=== PATIENT | female | born 1995 ===

== ENCOUNTER 2016-10-08 19:23 | Emergency (ER) | payer SELFPAY ==
[2016-10-08 20:10] VITALS: BP 140/87; PULSE 98; RESP 18; TEMP 98.5; O2SAT 100
--- NOTE | 2016-10-08 21:29 | ED PDOC ---
HPI: Female Pain Time Seen by Provider: 10/08/16 21:05 Chief Complaint (Nursing): Female Genitourinary History Per: Patient Additional Complaint(s): Pt. c/o dysuria, frequency, urgency x 1 days. Pt. states 2 months ago she had similar symptoms and was dx with a UTI and prescribed oral meds with good relif of symptoms. Denies fever, flank pain, abdominal pain, incontinence. Past Medical History Reviewed: Historical Data, Nursing Documentation, Vital Signs Vital Signs: Last Vital Signs Temp 98.5 F 10/08/16 20:07 Pulse 98 H 10/08/16 20:07 Resp 18 10/08/16 20:07 BP 140/87 10/08/16 20:07 Pulse Ox 100 10/08/16 20:07 - Family History Family History: States: No Known Family Hx - Home Medications Home Medications: Ambulatory Orders Medication Instructions Recorded Ciprofloxacin [Cipro] 500 mg PO BID #14 tab 07/13/16 Naproxen [Naprosyn] 500 mg PO BID PRN #14 tablet 07/13/16 Nitrofurantoin Macrocrystals 100 mg PO BID #14 cap 10/08/16 [Macrobid] Phenazopyridine [Phenazopyridine 100 mg PO BID #6 tab 10/08/16 HCl] - Allergies Allergies/Adverse Reactions: Allergies Allergy/AdvReac Type Severity Reaction Status Date / Time No Known Allergies Allergy Verified 07/13/16 03:21 Review of Systems ROS Statement: Except As Marked, All Systems Reviewed And Found Negative Genitourinary Female: Positive for: Dysuria, Frequency Physical Exam - Physical Exam Appears: Positive for: Well, Non-toxic, No Acute Distress Skin: Positive for: Normal Color, Warm. Negative for: Rash Eye Exam: Positive for: Normal appearance Gastrointestinal/Abdominal: Positive for: Normal Exam, Soft. Negative for: Tenderness Back: Positive for: Normal Inspection. Negative for: L CVA Tenderness, R CVA Tenderness Neurologic/Psych: Positive for: Alert, Oriented - Laboratory Results Urine POC: Negative Urine dip results: Positive for: Leukocyte Esterase (small), Blood (trace), Protein (30). Negative for: Nitrate, Ketones, Glucose, Bilirubin - ECG O2 Sat by Pulse Oximetry: 100 Disposition - Clinical Impression Clinical Impression: Urinary tract infection - Patient ED Disposition Is Patient to be Admitted: No - Disposition Disposition: Routine/Home Disposition Time: 21:59 Condition: STABLE Additional Instructions: Drink plenty of water. Follow up with your PMD in 2 days for further evaluation. Prescriptions: Nitrofurantoin Macrocrystals [Macrobid] 100 mg PO BID #14 cap Phenazopyridine [Phenazopyridine HCl] 100 mg PO BID #6 tab Instructions: Urinary Tract Infection in Women (ED)
== END 2016-10-08 22:00 | disposition home or self-care (01) ==
LOC: H.ER 19:23
DX: N39.0 Urinary tract infection, site not specified (principal)

== ENCOUNTER 2016-10-10 21:59 | Emergency (ER) | payer SELFPAY ==
--- NOTE | 2016-10-10 22:49 | ED PDOC ---
HPI: Abdomen Chief Complaint (Provider): Abdominal Pain History Per: Patient History/Exam Limitations: no limitations Onset/Duration Of Symptoms: Days (1) Outside of [place] travel?: No Current Symptoms Are (Timing): Still Present Pain Scale Rating Of: 7 Location Of Pain/Discomfort: RUQ, Suprapubic Quality Of Discomfort: Sharp, Burning Associated Symptoms: Urinary Symptoms (dysuria). denies: Fever, Chills, Nausea , Vomiting, Diarrhea, Back Pain Alleviating Factors: None Last Bowel Movement: Today Last Menstral Period: Today : 0 Para: 0 <Jerome Calle - Last Filed: 10/11/16 02:04> Location Of Pain/Discomfort: Suprapubic <Ashley Hughes - Last Filed: 10/11/16 14:54> Time Seen by Provider: 10/10/16 22:11 Chief Complaint (Nursing): Abdominal Pain Additional Complaint(s): 21 yo F w previous ED visit for UTI and no other PMHx presents to ED w c/o abdominal pain worsening over last couple of days. Pt was previously seen in the ED w confirmed UTI and given antibiotics. She states her lower abdominal / suprapubic pain and dysuria to be worse than previous visit. She has frequent urge to urinate, but finds that she does not often have an actual need. She denies fevers/chills, n/v/d/c, headaches, chest pain, sob, or dyspnea. (Jerome Calle) Past Medical History - Family History Family History: States: Unknown Family Hx <Jerome Calle - Last Filed: 10/11/16 02:04> <Ashley Hughes - Last Filed: 10/11/16 14:54> Vital Signs: Last Vital Signs Temp 98.3 F 10/11/16 02:14 Pulse 72 10/11/16 02:14 Resp 18 10/11/16 02:14 BP 117/61 10/11/16 02:14 Pulse Ox 98 10/11/16 02:14 - Home Medications Home Medications: Ambulatory Orders Medication Instructions Recorded Ciprofloxacin [Cipro] 500 mg PO BID #14 tab 07/13/16 Naproxen [Naprosyn] 500 mg PO BID PRN #14 tablet 07/13/16 Nitrofurantoin Macrocrystals 100 mg PO BID #14 cap 10/08/16 [Macrobid] Phenazopyridine [Phenazopyridine 100 mg PO BID #6 tab 10/08/16 HCl] - Allergies Allergies/Adverse Reactions: Allergies Allergy/AdvReac Type Severity Reaction Status Date / Time No Known Allergies Allergy Verified 10/10/16 22:05 Review of Systems ROS Statement: Except As Marked, All Systems Reviewed And Found Negative <Jerome Calle - Last Filed: 10/11/16 02:04> Physical Exam - Reviewed Nursing Documentation Reviewed: Yes Vital Signs Reviewed: Yes - Physical Exam Appears: Positive for: Non-toxic, No Acute Distress Head Exam: Positive for: ATRAUMATIC, NORMAL INSPECTION, NORMOCEPHALIC Skin: Positive for: Normal Color, Warm, Dry Eye Exam: Positive for: Normal appearance, EOMI, PERRL ENT: Positive for: Normal ENT Inspection Neck: Positive for: Normal, Painless ROM, Supple Cardiovascular/Chest: Positive for: Regular Rate, Rhythm. Negative for: Edema Respiratory: Positive for: Normal Breath Sounds. Negative for: Crackles Pulses-Post. Tibialis (L): 2+ Pulses-Post. Tibialis (R): 2+ Gastrointestinal/Abdominal: Positive for: Normal Exam, Bowel Sounds, Soft. Negative for: Tenderness, Distended, Guarding, Rebound Back: Positive for: Normal Inspection, L CVA Tenderness, R CVA Tenderness Extremity: Positive for: Normal ROM. Negative for: Pedal Edema, Calf Tenderness Neurologic/Psych: Positive for: Alert, payroll lead II-XII, Oriented <Jerome Calle T - Last Filed: 10/11/16 02:04> - Laboratory Results Result Diagrams: 10/10/16 22:51 10/10/16 22:51 - ECG O2 Sat by Pulse Oximetry: 100 - Progress Re-evaluation Time: 01:00 (U/S similar to Walker exam, labs wnl) Condition: Re-examined, Improved <Jerome Calle - Last Filed: 10/11/16 02:04> - Laboratory Results Result Diagrams: 10/10/16 22:51 10/10/16 22:51 - ECG O2 Sat by Pulse Oximetry: 100 Pulse Ox Interpretation: Normal - CT Scan/US Transvaginal US Other Rad Studies (CT/US): Interpreted By Me, Read By Radiologist, Radiology Report Reviewed <Ashley Hughes - Last Filed: 10/11/16 14:54> - Progress ED Course And Treament: 21 yo F w previous ED visit for UTI and no other PMHx presents to ED w c/o abdominal pain worsening over last couple of days -CBC -CMP -Upreg -UA -Transvaginal U/S -Toradol 30mg IVP Once (Jerome Calle) Medical Decision Making <Jerome Calle - Last Filed: 10/11/16 02:04> <Ashley Hughes - Last Filed: 10/11/16 14:54> Medical Decision Makin:30 Transvaginal Ultrasound Results FINDINGS: Uterus/cervix: Endometrial thickness measures 7.3 mm. Right ovary: Normal sized ovary with vascular flow. 1.3 x 1.3 x 1.1 cm right paraovarian cystic structure is noted. Left ovary: Unremarkable. Vascular flow is present. Free fluid: No evidence of free fluid in the submitted imgaes. IMPRESSION: 1. Endometrial thickness measures 7.3 mm. 2. 1.3 x 1.3 x 1.1 cm right paraovarian cystic structure is noted. Normal sized ovaries with vascular flow. - Similar ultrasound results present in June of 2016. (Ashley Hughes) Disposition - Disposition Disposition: Routine/Home Disposition Time: 02:03 <Jerome Calle - Last Filed: 10/11/16 02:04> <Ashley Hughes - Last Filed: 10/11/16 14:54> - Clinical Impression Clinical Impression: Ovarian cyst, Abdominal cramps - Disposition Condition: GOOD Additional Instructions: follow up with your procurement cost coordinator in 1-2 days return to the ED with any worsening or concerning symptoms. Instructions: Ovarian Cyst (ED)
[2016-10-10 23:00] LABS: BASO # 0.1 K/uL (0.0-0.2); BASO % 0.5 % (0.0-2.0); EOS # 0.2 K/uL (0.0-0.7); EOS % 1.6 % (0.0-4.0); HEMATOCRIT 35.5 % (34.0-47.0); LYMPH # 2.5 K/uL (1.0-4.3); LYMPH % 23.6 % (20.0-40.0); MEAN CORPUSCULAR HEMOGLOBIN 26.9 pg (27.0-31.0); MEAN CORPUSCULAR HGB CONC 32.8 g/dL (33.0-37.0); MEAN PLATELET VOLUME 9.6 fl (7.2-11.7); MONO # 0.8 K/uL (0.0-0.8); MONO % 7.3 % (0.0-10.0); NEUT # 7.1 K/uL (1.8-7.0); NRBC % 0.1 % (0.0-0.0); RED CELL DISTRIBUTION WIDTH 14.7 % (11.5-14.5); WHITE BLOOD COUNT 10.7 K/uL (4.8-10.8)
[2016-10-10 23:06] LABS: ALKALINE PHOSPHATASE 93 U/L (38-126); ALT/SGPT 26 U/L (9-52); AST/SGOT 28 U/L (14-36); BILIRUBIN,TOTAL 0.9 mg/dl (0.2-1.3); BLOOD UREA NITROGEN 13 mg/dl (7-17); CALCIUM 8.8 mg/dL (8.4-10.2); CARBON DIOXIDE 24 mmol/L (22-30); CHLORIDE 106 mmol/L (98-107); GFR AFRICAN-AMERICAN > 60; GLUCOSE,RANDOM 104 mg/dL (65-105); SODIUM 139 mmol/l (132-148); TOTAL PROTEIN 8.2 G/DL (6.3-8.2)
[2016-10-10 23:15] LABS: POTASSIUM 4.3 MMOL/L (3.6-5.0)
[2016-10-11 02:15] VITALS: BP 117/61; PULSE 72; RESP 18; TEMP 98.3
--- NOTE | 2016-10-11 13:18 | US ---
PROCEDURE: HISTORY: pelvic pain r/o torsion COMPARISON: TECHNIQUE: FINDINGS: The uterus measures 6.1 x 3.2 x 4.4 centimeters. The endometrium measures 7 millimeters. The right ovary measures 2.2 x 1.7 x 1.6 centimeters. There is a right O Varian cyst measuring 1.3 centimeters. Left ovary measures 2.3 x 1.7 x 1.9 centimeters. There is bilateral ovarian arterial Doppler flow. IMPRESSION: No evidence of ovarian torsion. Small right ovarian cyst.
[2016-10-11 14:55] VITALS: O2SAT 100
== END 2016-10-11 02:14 | disposition home or self-care (01) ==
LOC: H.ER 21:59
DX: N83.201 Unspecified ovarian cyst, right side (principal); R30.0 Dysuria; R10.11 Right upper quadrant pain
CPT/HCPCS: 76830; 80053; 81025; 85025; 99284; J1885